=== PATIENT | male | born 1990 | race Caucasian/White ===

== ENCOUNTER 2023-05-17 10:34 | Emergency (ER) | payer BC, SELFPAY ==
[2023-05-17 10:50] VITALS: BP 154/97; PULSE 81; RESP 16; TEMP 37.7; O2SAT 99
--- NOTE | 2023-05-17 11:38 | ED.WOUNDLAC ---
HPI - Wound/Laceration General Chief Complaint: Wound/Laceration Stated Complaint: Wound Check Source: patient Mode of arrival: ambulatory Limitations: no limitations History of Present Illness HPI narrative: 33-year-old male presenting for complaint abscess to right groin which he states broke open 4 days ago. He has since had drainage to the open site. denies pain, nausea vomiting, fevers or chills. He has been cleansing the site with Bactine wound cleanser and applying wound gel. Related Data Allergies Allergy/AdvReac Type Severity Reaction Status Date / Time No Known Allergies Allergy Verified 05/17/23 11:35 Review of Systems Review of Systems: CONSTITUTIONAL: Denies body aches, fever, chills, or sweats. EYES: Denies visual changes, redness, or discharge. ENT: Denies rhinorrhea, congestion CARDIOVASCULAR: Denies chest pain, palpitations, or edema. RESPIRATORY: Denies cough or dyspnea. GASTROINTESTINAL: Denies abdominal pain, nausea, vomiting, or diarrhea. SKIN: reports right groin abscess MUSCULOSKELETAL: Denies back pain, joint pain, or myalgia. NEUROLOGIC: Denies headache, numbness, tingling, or weakness. [facility] Past Medical History Medical History (Updated 05/17/23 @ 11:57 by Haven Agarwal, RENTAL CLERK) No pertinent past medical history Comments At time of signature, I have reviewed and agree with nursing past medical, surgical, social and family history unless otherwise noted. Please see nursing chart for further information. There is no relevant family history pertinent to the presenting complaint Exam Narrative: GENERAL: Well-appearing HEAD: Normocephalic, atraumatic. EYES: conjunctivae clear, and EOMI. ENT: Mucous membranes moist. Oropharynx without edema, erythema or lesions. NECK: Supple. No lymphadenopathy CHEST: Clear to auscultation. HEART: Regular rate and rhythm. SKIN: Warm, dry. Right groin abscess with open area 2cm, surrounding induration approx 5cm diameter, tender, draining purulent material. NEURO: Alert and oriented x3. Course Course Emergency Course: Patient is aware of diagnosis, understands and agrees to treatment plan. Anticipatory guidance given. Patient agrees to follow-up as directed and is aware of reasons to seek care at the emergency department. Portions of this record may have been created with voice recognition software Level of Care: Express Care Visit Vital Signs Vital signs: Vital Signs Temperature 99.8 F H 05/17/23 10:50 Pulse Rate 81 05/17/23 10:50 Respiratory Rate 16 05/17/23 10:50 Blood Pressure 154/97 H 05/17/23 10:50 Pulse Oximetry 99 05/17/23 10:50 Oxygen Delivery Room Air 05/17/23 10:50 Temperature 99.8 F H 05/17/23 10:50 Pulse Rate 81 05/17/23 10:50 Respiratory Rate 16 05/17/23 10:50 Blood Pressure 154/97 H 05/17/23 10:50 Pulse Oximetry 99 05/17/23 10:50 Oxygen Delivery Room Air 05/17/23 10:50 Reviewed Procedures Abscess I/D Right groin: Abcess I&D Additional Comments: The procedure and its alternatives were reviewed with patient. Risks were reviewed with patient including infection and damage to nearby structures. Patient provided verbal informed consent. The patient was positioned appropriately. Site irrigated with about 30mL sterile water, manually expressed purulent drainage. Site remains open. Pt tolerated the procedure well, no complications. Gauze applied over the site. MDM - Wound/Laceration MDM Narrative Medical decision making narrative: Abscess already open and draining, able to expel additional purulent material with manual pressure. Site irrigated and packed. Discussed physical exam findings and Rx. Advised supportive measures and signs/symptoms to go to the ER. Pt is appropriate for outpt treatment and f/u. Differential Diagnosis Differential diagnosis: Likely abscess and other (cellulitis, folliculitis, hydradenitis) Discharge Plan Discharge Clinical
--- NOTE | 2023-05-17 11:50 | PC.NURSE ---
i and d set up done at 1146
== END 2023-05-17 11:54 | disposition home or self-care (01) ==
PROVIDERS: Emergency Provider Nurse Practitioner Family
DX: L02.214 Cutaneous abscess of groin (principal)
CPT/HCPCS: 99213; G0463